=== PATIENT | male | born 1960 | race Two or more races ===

== ENCOUNTER 2024-05-13 08:34 | Outpatient (AMB) | payer MEDICARE, SELFPAY ==
[2024-05-13 09:03] VITALS: BP 134/88; PULSE 86; RESP 18; TEMP 36.1; O2SAT 97; BMI 27.2
--- NOTE | 2024-05-13 09:03 | PD.ORTHCLVIS ---
Vital signs 05/13/24 09:03 Height 1.8 m Height Method Stated Weight 88.677 kg Weight Measurement Method Standing Scale BMI 27.2 BP 134/88 H Blood Pressure Source Automatic Cuff Blood Pressure Location Right Upper Arm Position Sitting Respiration 18 Pulse 86 Pulse Source Monitor Temp 96.9 F Temp Source Temporal Artery Scan Pulse Oximetry (%) 97 Oxygen Delivery Method Room Air Med/Allergies Allergies & Medications Allergies No Known Allergies Allergy (Verified 05/13/24 09:04) Medication Reconciliation fenofibrate 160 mg tablet 160 mg PO QDAY 05/13/24 [History Confirmed 05/13/24] glipizide 10 mg tablet 10 mg PO QDAY 05/13/24 [History Confirmed 05/13/24] losartan 25 mg tablet 25 mg PO QDAY 05/13/24 [History Confirmed 05/13/24] metformin 1,000 mg tablet 1,000 mg PO QDAY 05/13/24 [History Confirmed 05/13/24] Exam Exam Patient is in no acute distress and is cooperative with the examination today. Breathing is nonlabored. Patient has a normal mood and affect. Bilateral extremities were evaluated and demonstrates sensation intact to light touch. Palpable pedal pulses are present. No significant edema is present. Bilateral hips were examined. The patient has no pain with log roll of the hips. Internal rotation to 30 degrees and external rotation to 30 degrees is painless. Negative FADIR. Left knee was examined today. The left knee is in reasonable alignment. Range of motion from 0-120 degrees. Knee is stable to varus and valgus as well as AP translation with <5mm. Patient has a negative McMurrays. There is no pain with patellofemoral compression and no crepitus noted. The knee is nontender to palpation. The right knee was also examined. The right knee is in [varus] alignment. Range of motion from [0-115] degrees. Knee is stable to varus and valgus as well as AP translation with <5mm. Patient has a [negative] McMurrays. There is [no] pain with patellofemoral compression and [no] crepitus noted. The knee is [tender] to palpation [medially]. He has no current x-rays for me to review today Assessment and Plan Problem List (1) Arthritis of right knee: Status: Acute Plan: Patient is a 64-year-old male with right knee pain and right knee arthritis. We discussed nonoperative and operative options. He would like a cortisone injection of the right knee today which is reasonable. We also discussed anti-inflammatories. Recommend knee cortisone injection as patient would like to proceed with conservative treatment at this time. The risks and benefits of the procedure were reviewed with the patient and patient gave verbal consent to continue with the procedure. Procedure: performed by Dr. Almendarez Using sterile technique the Right knee was thoroughly prepped with alcohol, and approximately 1 cc of Kenalog 40 mg/mL and 4 cc of 1% lidocaine was injected without resistance into the medial tibial femoral joint space. The patient tolerated the procedure. Plan We will see the patient back in approximately 3 months Advanced Care Planning Discussion Advance care planning discussed with:: patient Office Procedures GNS Level of Care Nursing/Assessment Patient Status: Initial/New Patient Nursing Assessment/Reassesment: Medication Reconciliation, Update PMH in EMR and Vital Signs Coordination of Care: Complex Care and Chronic Disease 1-5, Education Complex Pt/Fam, 1 Ins Authorization and Staff clarify orders New Patient Charge New Patient Point Assignment: 1099 New Patient Point Charge: BOBBIN WINDER Level 3 ([id number]) Medication Given Medication Given Medication Given: Yes Documented Dose Given: 4 Route: Infiitration Medication Given Medication Given Medication Given: Yes Documented Dose Given: 1 Route: Infiitration Office Meds Xylocaine 10 mg/mL (1 %) injection solution Performing Provider: Stiven Almendarez MD Performing Location: [facility] Administered by: Stiven Almendarez MD on 05/13/24 10:12 Dose Route Admin Location Dispensed Lot Number Expiration Date [facility] C[employer] Helper 20 mL Infiltration 20 mL [id number] 12/14/26 31140-622-59 [facility] triamcinolone acetonide 40 mg/mL suspension for injection Performing Provider: Stiven Almendarez MD Performing Location: [facility] Administered by: Stiven Almendarez MD on 05/13/24 10:12 Dose Route Admin Location Dispensed Lot Number Expiration Date [facility] C[employer] 40 mg Infiltration 1 mL [id number] 10/14/25 9708-6654-88 [employer] [place] Intake Visit Data Collection New Patient or Established: New Patient (never been to [facility]) Reason for Visit:: RT KNEE INJECTION Seen by Clinical Staff ONLY (RN/MA): No 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: No PCP or OBGYN visit in last 3 months: Yes Do You Feel Safe at Home: Yes Questionairres Past Medical History Past Medical History Have you ever been diagnosed with any of the following: Respiratory Problems Smoking: No Smoking Exposure: No Subjective Visit Visit for: new patient, knee and injections Immunization / Flu Flu Vaccine in the Last 12 Months: No Flu Vaccine Exclusion Criteria: Refused by Patient History of Present Illness Chief complaint: RT KNEE INJECTIONS Date of injury / onset of symptoms: MAY 2023 Miguel is a 64-year-old male with severe right knee pain and right knee arthritis. He has had multiple injections in the past which is numbered over 5. The last injections last 7 months. His last hemoglobin A1c is 9. He would like to get an injection today if possible. Personal History Occupation: DISABLED Pain Pain level (0-10): 10 Pain duration: WITH MOVEMENT Pain location: inside (medial), outside (lateral), anterior and posterior Pain quality: sharp and aching Pain timing: increases with activity Associated signs & symptoms: stiffness Ambulatory data Ambulatory device: none Treatments Number of previous injections: 5 Improvement with previous injections: Yes Number of Physical Therapy sessions: 6 Improvement with PT: Yes Improvement with NSAIDS: n/a Review of Systems Review of Systems: All systems negative unless otherwise noted in HPI.
== END 2024-05-13 09:44 | disposition home or self-care (01) ==
PROVIDERS: PCP Physician Assistant; Referring Provider Physician Assistant; Supervising Provider Orthopaedic Surgery Adult Reconstructive Orthopaedic Surgery; Visit Provider Orthopaedic Surgery Adult Reconstructive Orthopaedic Surgery
DX: M17.11 Unilateral primary osteoarthritis, right knee (principal); M25.561 Pain in right knee
CPT/HCPCS: 20610; 99203; J3301; J3490; G0463

== ENCOUNTER 2025-01-17 07:57 | Outpatient (AMB) | payer MEDICARE, SELFPAY ==
--- NOTE | 2025-01-17 08:05 | ORTHONT_ITS ---
Vital signs 01/17/25 08:09 Height 1.8 m Height Method Measured Weight 84.595 kg Weight Measurement Method Standing Scale BMI 26.1 BP 136/73 H Blood Pressure Source Automatic Cuff Blood Pressure Location Left Upper Arm Position Sitting Respiration 18 Pulse 87 Pulse Source Monitor Temp 98.1 F Temp Source Temporal Artery Scan Pulse Oximetry (%) 97 Oxygen Delivery Method Room Air Med/Allergies Allergies & Medications Allergies No Known Allergies Allergy (Verified 01/17/25 08:10) Medication Reconciliation fenofibrate 160 mg tablet 160 mg PO QDAY 05/13/24 [History Confirmed 01/17/25] glipizide 10 mg tablet 10 mg PO QDAY 05/13/24 [History Confirmed 01/17/25] losartan 25 mg tablet 25 mg PO QDAY 05/13/24 [History Confirmed 01/17/25] metformin 1,000 mg tablet 1,000 mg PO QDAY 05/13/24 [History Confirmed 01/17/25] Exam Exam Patient is in no acute distress and is cooperative with the examination today. Breathing is nonlabored. Patient has a normal mood and affect. Bilateral extremities were evaluated and demonstrates sensation intact to light touch. Palpable pedal pulses are present. No significant edema is present. Bilateral hips were examined. The patient has no pain with log roll of the hips. Internal rotation to 30 degrees and external rotation to 30 degrees is painless. Negative FADIR. Left knee was examined today. The left knee is in reasonable alignment. Range of motion from 0-120 degrees. Knee is stable to varus and valgus as well as AP translation with <5mm. Patient has a negative McMurrays. There is no pain with patellofemoral compression and no crepitus noted. The knee is nontender to palpation. The right knee was also examined. The right knee is in [varus] alignment. Range of motion from [0-115] degrees. Knee is stable to varus and valgus as well as AP translation with <5mm. Patient has a [negative] McMurrays. There is [no] pain with patellofemoral compression and [no] crepitus noted. The knee is [tender] to palpation [medially]. Assessment and Plan Problem List (1) Arthritis of right knee: Status: Acute Plan: Patient is a 64-year-old male with right knee pain and right knee arthritis. We discussed nonoperative and operative options. He has done well with conservative treatment. We gave him a cortisone injection in the right knee and he has had great pain relief with this. He would like to hold off on injections for now as he has minimal pain Plan We will see the patient back in approximately 3 months Advanced Care Planning Discussion Advance care planning discussed with:: patient Office Procedures GNS Level of Care Nursing/Assessment Patient Status: Established Patient Nursing Assessment/Reassesment: Medication Reconciliation, Orthostatic Vitals, Update PMH in EMR and Vital Signs Coordination of Care: Complex Care and Chronic Disease 1-5, Education Complex Pt/Fam, Consent,records obtained, informed consent, Results/Orders obtained and Staff clarify orders Established Patient Charge Established Patient Point Assignment: 105 Established Patient Point Charge: EP Level 3 (80-115) MA Intake Visit Data Collection New Patient or Established: Established Patient (seen at [facility] within 3 years) Reason for Visit:: RT KNEE INJECTION Seen by Clinical Staff ONLY (RN/MA): No Certified Energy Manager Required: No PCP or OBGYN visit in last 3 months: Yes Hx Now: No Do You Feel Safe at Home: Yes Authorities Contacted: N/A Questionairres Past Medical History Past Medical History Have you ever been diagnosed with any of the following: Respiratory Problems Smoking: No Smoking Exposure: No Subjective Visit Visit for: follow up visit and knee Immunization / Flu Flu Vaccine in the Last 12 Months: No Flu Vaccine Exclusion Criteria: Refused by Patient History of Present Illness Chief complaint: RT KNEE INJECTIONS Date of injury / onset of symptoms: MAY 2023 Miguel is a 64-year-old male with severe right knee pain and right knee arthritis. He has had multiple injections in the past which is numbered over 5. The last injections last 9 months. His last hemoglobin A1c is 9. He would like to hold off on injections for now Personal History Occupation: DISABLED Red flag PMH: none BMI Counceling provided: Yes Pain Pain level (0-10): 10 Pain duration: WITH MOVEMENT Pain location: inside (medial), outside (lateral), anterior and posterior Pain quality: sharp and aching Pain timing: increases with activity Associated signs & symptoms: stiffness Ambulatory data Ambulatory device: none Treatments Number of previous injections: 5 Improvement with previous injections: Yes Number of Physical Therapy sessions: 6 Improvement with PT: Yes Improvement with NSAIDS: n/a Review of Systems Review of Systems: All systems negative unless otherwise noted in HPI.
[2025-01-17 08:09] VITALS: BP 136/73; PULSE 87; RESP 18; TEMP 36.7; O2SAT 97; BMI 26.1
== END 2025-01-17 08:34 | disposition home or self-care (01) ==
LOC: HODSRG 07:57
PROVIDERS: PCP Physician Assistant; Referring Provider Physician Assistant; Supervising Provider Orthopaedic Surgery Adult Reconstructive Orthopaedic Surgery; Visit Provider Orthopaedic Surgery Adult Reconstructive Orthopaedic Surgery
DX: M17.11 Unilateral primary osteoarthritis, right knee (principal); M25.561 Pain in right knee
CPT/HCPCS: 99213; G0463